=== PATIENT | female | born 1980 | race Two or more races ===

== ENCOUNTER 2019-03-22 19:24 | Emergency (ER) | payer MEDICAID ==
[2019-03-22 19:32] VITALS: BP 120/82
--- NOTE | 2019-03-22 19:43 | ER Document Report ---
ED Skin Rash/Insect Bite/Abscs - General Chief Complaint: Itching Stated Complaint: INSECT BITES Time Seen by Provider: 03/22/19 19:43 Mode of Arrival: Ambulatory Information source: Patient Notes: 38-year-old female presented to ED for insect bites and itching to the arms and legs since Saturday. She states she is been taking Benadryl 50 mg every 4 hours with no relief. She states the symptoms began on Saturday and have not gotten any better. She denies any shortness of breath swelling to the throat swelling to the lips and respirations have been regular nonlabored. She states she is used some Benadryl and calamine lotion with no relief. She is alert oriented respirations regular and unlabored speaking in full sentences. She states she is here on vacation from [place] thinking that they might moved to the area. She states the only medical history she has a fibromyalgia. She states she does not drink smoke or use any recreational drugs. She states she does not work and lives with her family. TRAVEL OUTSIDE OF THE [place] IN LAST 30 DAYS: No - HPI Patient complains to provider of: Insect bite - Arms and legs Onset: Last week Onset/Duration: Persistent Quality of pain: No pain Severity: None Pain Level: Denies Skin Character: Rash Quality of rash: Itchy Similar symptoms previously: No Recently seen / treated by doctor: No - Related Data Allergies/Adverse Reactions: No Known Allergies Allergy (Unverified 03/22/19 19:43) Past Medical History - General Information source: Patient - Social History Smoking Status: Never Smoker Frequency of alcohol use: None Drug Abuse: None Lives with: Family Family History: Reviewed & Not Pertinent Patient has suicidal ideation: No Patient has homicidal ideation: No - Past Medical History Cardiac Medical History: Reports: None Pulmonary Medical History: Reports: None EENT Medical History: Reports: None Neurological Medical History: Reports: None Endocrine Medical History: Reports: None Renal/ Medical History: Reports: None Malignancy Medical History: Reports: None GI Medical History: Reports: None Musculoskeletal Medical History: Reports Hx Fibromyalgia Skin Medical History: Reports None Psychiatric Medical History: Reports: None Traumatic Medical History: Reports: None Infectious Medical History: Reports: None Past Surgical History: Reports: Hx Section - Immunizations Immunizations up to date: Yes Hx Diphtheria, Pertussis, Tetanus Vaccination: Yes Review of Systems - Review of Systems Constitutional: No symptoms reported EENT: No symptoms reported Cardiovascular: No symptoms reported Respiratory: No symptoms reported Gastrointestinal: No symptoms reported Genitourinary: No symptoms reported Female Genitourinary: No symptoms reported Musculoskeletal: No symptoms reported Skin: Rash - Insect bites to arms and legs Hematologic/Lymphatic: No symptoms reported Neurological/Psychological: No symptoms reported -: Yes All other systems reviewed and negative Physical Exam - Vital signs Vitals: Temp Pulse Resp BP Pulse Ox 98.5 F 78 16 120/82 98 03/22/19 19:30 03/22/19 19:30 03/22/19 19:30 03/22/19 19:30 03/22/19 19:30 Interpretation: Normal - General General appearance: Appears well, Alert - HEENT Head: Normocephalic, Atraumatic Eyes: Normal Pupils: PERRL Ears: Normal External canal: Normal Tympanic membrane: Normal Sinus: Normal Nasal: Normal Mouth/Lips: Normal Mucous membranes: Normal Pharynx: Normal Neck: Normal - Respiratory Respiratory status: No respiratory distress Chest status: Nontender Breath sounds: Normal Chest palpation: Normal - Cardiovascular Rhythm: Regular Heart sounds: Normal auscultation Murmur: No - Abdominal Inspection: Normal Distension: No distension Bowel sounds: Normal Tenderness: Nontender Organomegaly: No organomegaly - Back Back: Normal, Nontender - Extremities General upper extremity: Normal inspection, Nontender, Normal color, Normal ROM, Normal temperature General lower extremity: Normal inspection, Nontender, Normal color, Normal ROM, Normal temperature, Normal weight bearing. No: Fahad's sign - Neurological Neuro grossly intact: Yes Cognition: Normal Orientation: AAOx4 [place] Coma Scale Eye Opening: Spontaneous [place] Coma Scale Verbal: Oriented [place] Coma Scale Motor: Obeys Commands [place] Coma Scale Total: 15 Speech: Normal Motor strength normal: LUE, RUE, LLE, RLE Sensory: Normal - Psychological Associated symptoms: Normal affect, Normal mood - Skin Skin Temperature: Warm Skin Moisture: Dry Skin Color: Normal Location of irregularity: Extremities - Insect bites to arms and legs that have been scratched Character of irregularity: Macular Course - Re-evaluation Re-evalutation: 03/22/19 20:35 Patient was treated with a small dose of prednisone and Pepcid in the emergency room she is already been taking Benadryl. She was given instructions on methods to control the symptoms of her insect bites. Patient was also instructed on local primary care doctors if she continues to have symptoms and full when she moves to the area. Verbalized understanding and agreement with treatment plan and patient was discharged home - Vital Signs Vital signs: Temp Pulse Resp BP Pulse Ox 98.5 F 78 16 120/82 98 03/22/19 19:30 03/22/19 19:30 03/22/19 19:30 03/22/19 19:30 03/22/19 19:30 Discharge - Discharge Clinical Impression: insect bites multiple sites no infection Condition: Stable Disposition: HOME, SELF-CARE Instructions: Family Physicians / Practices Additional Instructions: Insect Bites You have been bitten by an insect. These bites can cause two types of swelling: an initial swelling due to insect saliva or injected poison, and a late reaction due to your body's allergic reaction. This initial local reaction may be uncomfortable but is not dangerous. Often there's an itchy "hive" at the bite location. This is treated with antihistamines, cold compresses, and resting the affected body part. The later reaction often develops about the second day. The entire area becomes very swollen, red, itchy, and tender. This is an allergic reaction. Your body is attacking the leftover insect saliva or venom. This type of allergy is unpleasant, but not dangerous. We treat this swelling with cortisone-type medicine. Sometimes we use antibiotics if we're worried about infection. Antihistamines help with the itch. If you develop a fever, chills, a red streak, or swollen glands in the area of the bite, infection may be starting. Return at once. Please do not take hot showers as this will make the itching worse. Please do not get overheated as this will make the itching worse. STEROID MEDICATION: You have been given a medicine of the cortisone/steroid class. This medication is used to control inflammation or allergy. It is usually only given for a short period of time, until the acute process subsides. There are usually no side effects from short-term use of cortisone-like medications. Some persons feel an increased sense of well-being and are not sleepy at bedtime. Long-term use of cortisone medications is best avoided, unless required for a severe condition. If your condition does not remit, or relapses after the course of corticosteroid medication, you should consult your physician. ACID-SUPPRESSING MEDICATION: You have a prescription for medicine which reduces the stomach's secretion of acid. Examples include Zantac, Tagament, and Pepcid. These drugs are often used to allow healing of ulcers or esophagitis. They may be needed to prevent recurrence of ulcers in some patients, or to prevent damage from acid reflux in the esophagus. Take all medication as prescribed, even after the pain is gone. Regular antacids may be added as needed if you have symptoms while taking this medicine. These medications sometimes are prescribed for allergic reactions because they have anti-histaminic effects and relieve the rash and itching of the reaction. There are usually no side effects from this medication. But, in rare cases and particularly in the elderly, serious problems can occur. Contact your doctor if there is fever, rash, hallucinations, confusion, or unusual bruising. Contact your doctor at once if you develop lightheadedness, black or bloody stool, or bloody vomitus. ANTIHISTAMINES: An antihistamine has been given and/or prescribed to control your symptoms. Antihistamines are used for many reasons, including itching, watering eyes, runny nose, allergic swelling, hives, and insect stings. Antihistamines may cause drowsiness, especially with the first dose. Do not operate machinery or drive while under the effects of the medication. Other common side effects include dry mouth and eyes. In older persons, antihistamines can occasionally cause urinary retention, constipation, and trouble focusing the eyes. Do not combine the medication with alcohol, or with any other medication without talking to your doctor. USE OF DIPHENHYDRAMINE: The use of diphenhydramine (Benadryl) has been recommended to control allergic symptoms. The 25 mg strength is available over- the-counter, as well as the elixir. This antihistamine is used for many symptoms. It's useful for itching, watering eyes and nose, allergic swelling, hives, and insect stings. The medication can be repeated four times daily. Age Elixir (12.5 mg/tsp) 25 mg pill 2-3 yr 1/2 tsp 4-8 yr 1 tsp 9-14 yr 2 tsp one tab adult 1-2 tabs Antihistamines may cause drowsiness, especially with the first dose. Do not operate machinery or drive while under the effects of the medication. Do not combine the medication with alcohol, or with any other medication without talking to your doctor. Use calamine lotion, Benadryl lotion, or Caladryl lotion to the site. FOLLOW-UP CARE: If you have been referred to a physician for follow-up care, call the [facility] office for an appointment as you were instructed or within the next two days. If you experience worsening or a significant change in your symptoms, notify the physician immediately or return to the Emergency Department at any time for re-evaluation. Prescriptions: Famotidine [Pepcid 20 mg Tablet] 20 mg PO BID #12 tablet Prednisone [Deltasone 20 mg Tablet] 2 tab PO DAILY 2 Days tablet
[2019-03-22] MEDS ORDERED: PREDNISONE 20 MG TABLET PO ONE (19:57)
[2019-03-22] MEDS ORDERED: FAMOTIDINE 20 MG TABLET PO ONE (19:57)
== END 2019-03-22 20:30 | disposition home or self-care (01) ==
LOC: ER 19:24
DX: S40.862A Insect bite (nonvenomous) of left upper arm, initial encounter (principal); S40.861A Insect bite (nonvenomous) of right upper arm, initial encounter; S80.862A Insect bite (nonvenomous), left lower leg, initial encounter; S80.861A Insect bite (nonvenomous), right lower leg, initial encounter; W57.XXXA Bitten or stung by nonvenomous insect and other nonvenomous arthropods, initial encounter
CPT/HCPCS: 99281; J7512

== ENCOUNTER 2020-02-16 23:55 | Emergency (ER) | payer MEDICAID ==
[2020-02-17] MEDS ORDERED: DEXAMETHASONE SOD PHOS INJ 10 MG/1 ML VIAL IM ONE (03:57)
--- NOTE | 2020-02-17 04:03 | ER Document Report ---
ED Skin Rash/Insect Bite/Abscs - General Chief Complaint: Rash Stated Complaint: RASH Time Seen by Provider: 02/17/20 03:57 Notes: CHIEF COMPLAINT: Poison crystal rash HPI: 39-year-old female presenting for generalized pruritic rash. Pat andres was working outside and believes she may have gotten into poison crystal complains of a very pruritic rash to the face, neck, anterior chest, bilateral arms and bilateral legs. Has taken no medications for her symptoms. Denies other complaints ROS: See HPI - all other systems were reviewed and are otherwise negative Constitutional: no fever Eyes: no drainage, no blurred vision ENT: no runny nose, no sore throat Cardiovascular: no chest pain Resp: no SOB, no cough GI: no vomiting, no diarrhea, no abdominal pain : no dysuria Integumentary: + rash Allergy: no hives Musculoskeletal: no extremity pain or swelling Neurological: no numbness/tingling, no weakness MEDICATIONS: I agree with the patient medications as charted by the RN. ALLERGIES: I agree with the allergies as charted by the RN. PAST MEDICAL HISTORY/PAST SURGICAL HISTORY: Reviewed and agree as charted by RN. SOCIAL HISTORY: Reviewed and agree as charted by RN. FAMILY HISTORY: No significant familial comorbid conditions directly related to patient complaint EXAM: Reviewed vital signs as charted by RN. CONSTITUTIONAL: Alert and oriented and responds appropriately to questions. Well-appearing; well-nourished HEAD: Normocephalic; atraumatic EYES: Conjunctivae clear, sclerae non-icteric ENT: normal nose; no rhinorrhea; moist mucous membranes; pharynx without lesions noted, no uvula edema or deviation, no tonsillar hypertrophy, phonation normal NECK: Supple without meningismus; non-tender; no cervical lymphadenopathy, no masses CARD: Capillary refill less than 3 seconds; symmetric distal pulses RESP: Normal chest excursion without splinting or tachypnea ABD/GI: non-distended. BACK: The back appears normal and is non-tender to palpation, there is no CVA tenderness EXT: Normal ROM in all joints; non-tender to palpation; no cyanosis, no effusions, no edema SKIN: Normal color for age and race; warm; dry; good turgor; raised mildly weeping pruritic rash on the bilateral cheeks, anterior neck, upper central chest, bilateral hands, forearms and upper arms, bilateral legs. No petechia purpura or vesicles. NEURO: Moves all extremities equally; Motor and sensory function intact PSYCH: The patient's mood and manner are appropriate. Grooming and personal hygiene are appropriate. MDM: 39-year-old female with what is likely rhus dermatitis. Will give Decadron in the emergency department keep patient on Vistaril, Decadron at home, PCP follow-up TRAVEL OUTSIDE OF THE [place] IN LAST 30 DAYS: No - Related Data Allergies/Adverse Reactions: No Known Allergies Allergy (Verified 02/17/20 01:33) Home Medications: HTN. FIBRO MYAGIA Past Medical History - Social History Smoking Status: Never Smoker Frequency of alcohol use: None Drug Abuse: None Family History: Reviewed & Not Pertinent Patient has homicidal ideation: No Renal/ Medical History: Denies: Hx Peritoneal Dialysis Musculoskeletal Medical History: Reports Hx Fibromyalgia Past Surgical History: Reports: Hx Section - Immunizations Immunizations up to date: Yes Hx Diphtheria, Pertussis, Tetanus Vaccination: Yes Physical Exam - Vital signs Vitals: Temp Pulse Resp BP Pulse Ox 98.3 F 98 20 134/92 H 98 02/17/20 00:01 02/17/20 00:01 02/17/20 00:01 02/17/20 00:01 02/17/20 00:01 Course - Vital Signs Vital signs: Temp Pulse Resp BP Pulse Ox 98.3 F 74 20 136/95 H 100 02/17/20 03:27 02/17/20 03:27 02/17/20 00:01 02/17/20 03:27 02/17/20 03:27 Discharge - Discharge Clinical Impression: Rhus dermatitis Condition: Stable Disposition: HOME, SELF-CARE Instructions: Poison Crystal ([facility]) Additional Instructions: Take the medications as prescribed, no driving if taking Vistaril as this can make you drowsy. Follow-up with primary care for reevaluation of the symptoms. If you develop swelling around the eyes return for reevaluation you may also use warm oatmeal baths and calamine lotion to help with the itching and the rash Prescriptions: Hydroxyzine Pamoate [Vistaril 25 mg Capsule] 25 mg PO Q6HP PRN #30 capsule PRN Reason: Dexamethasone [Decadron 4 Mg Tablet] 4 mg PO QAM #7 tablet Referrals: KAITY HILARIO MD [ACTIVE STAFF] - Follow up as needed
[2020-02-17 05:29] VITALS: BP 124/72
== END 2020-02-17 05:00 | disposition home or self-care (01) ==
LOC: ER 23:55
DX: L23.7 Allergic contact dermatitis due to plants, except food (principal)
CPT/HCPCS: 99283; 96372; J1100

== ENCOUNTER 2020-02-26 02:54 | Emergency (ER) | payer MEDICAID ==
[2020-02-26] MEDS ORDERED: ONDANSETRON 4 MG TAB.RAPDIS PO ONE (03:41)
[2020-02-26 04:07] LABS: APPEARANCE,URINE SLIGHTLY-CLOUDY; BILIRUBIN,URINE NEGATIVE (NEGATIVE); COLOR,URINE YELLOW; GLUCOSE, URINE NEGATIVE (NEGATIVE); KETONES,URINE NEGATIVE (NEGATIVE); LEUKOCYTE ESTERASE,URINE NEGATIVE (NEGATIVE); NITRITE,URINE NEGATIVE (NEGATIVE); PROTEIN,URINE NEGATIVE (NEGATIVE); URINE SPECIFIC GRAVITY 1.018; UROBILINOGEN,URINE NEGATIVE mg/dL (<2.0)
[2020-02-26 04:26] LABS: ABSOLUTE BASOPHILS # (AUTO) 0.1 10^3/uL (0.0-0.2); ABSOLUTE EOSINOPHILS # (AUTO) 0.3 10^3/uL (0.0-0.6); ABSOLUTE LYMPHOCYTES (AUTO) 3.1 10^3/uL (0.5-4.7); ABSOLUTE MONOCYTES (AUTO) 1.1 10^3/uL (0.1-1.4); ABSOLUTE NEUT (AUTO) 5.5 10^3/uL (1.7-8.2); EOSINOPHILS % (AUTO) 2.5 % (0-6); HEMATOCRIT 41.8 % (36.0-47.0); HEMOGLOBIN 14.5 g/dL (12.0-15.5); LYMPHOCYTES % (AUTO) 31.1 % (13-45); MEAN CORPUSCULAR HEMOGLOBIN 31.4 pg (27.0-33.4); MEAN CORPUSCULAR HGB CONC 34.5 g/dL (32.0-36.0); MEAN CORPUSCULAR VOLUME 91 fl (80-97); MONOCYTES % (AUTO) 10.5 % (3-13); PLATELET COUNT 377 10^3/uL (150-450); RED BLOOD COUNT 4.61 10^6/uL (3.72-5.28); RED CELL DISTRIBUTION WIDTH 13.8 % (11.5-14.0); SEGMENTED NEUTROPHILS % (AUTO) 54.9 % (42-78); TOTAL CELLS COUNTED % (AUTO) 100 %
[2020-02-26 04:38] LABS: ALBUMIN 3.8 g/dL (3.5-5.0); ALKALINE PHOSPHATASE 76 U/L (38-126); ANION GAP 5 (5-19); ASPARTATE AMINO TRANSFERASE 19 U/L (14-36); BILIRUBIN,TOTAL 0.4 mg/dL (0.2-1.3); BLOOD UREA NITROGEN 11 mg/dL (7-20); CALCIUM 9.5 mg/dL (8.4-10.2); CARBON DIOXIDE 26 mmol/L (22-30); CHLORIDE 105 mmol/L (98-107); GLUCOSE 140 mg/dL (75-110); POTASSIUM 4.1 mmol/L (3.6-5.0); TOTAL PROTEIN 6.9 g/dL (6.3-8.2)
[2020-02-26] MEDS ORDERED: NORMAL SALINE 1000 ML 1,000 ML IV ONE (07:02)
[2020-02-26] MEDS ORDERED: ONDANSETRON HCL INJ/PF 4 MG/2 ML SDV IV ONE (07:04)
[2020-02-26] MEDS ORDERED: MORPHINE SULFATE 10 MG/ML INJ IV ONE (07:04)
[2020-02-26 07:45] LABS: URINE AMPHETAMINES SCREEN NEGATIVE; URINE BARBITURATES SCREEN NEGATIVE; URINE BENZODIAZEPINES SCREEN NEGATIVE; URINE COCAINE SCREEN NEGATIVE; URINE MARIJUANA (THC) SCREEN NEGATIVE; URINE METHADONE SCREEN NEGATIVE; URINE PHENCYCLIDINE SCREEN NEGATIVE
--- NOTE | 2020-02-26 10:09 | RADIOLOGY REPORT (SQ) ---
EXAM DESCRIPTION: CT ABD/PELVIS WITH IV ORAL IMAGES COMPLETED DATE/TIME: 02/26/2020 9:54 am REASON FOR STUDY: abd pain/nausea/diarrhea COMPARISON: None. TECHNIQUE: CT scan of the abdomen and pelvis performed using helical scanning technique with dynamic intravenous contrast injection. No oral contrast. Images reviewed with lung, soft tissue, and bone windows. Reconstructed coronal and sagittal MPR images reviewed. Delayed images for evaluation of the urinary system also acquired. All images stored on PACS. All CT scanners at this facility use dose modulation, iterative reconstruction, and/or weight based d osing when appropriate to reduce radiation dose to as low as reasonably achievable (ALARA). [facility]: Dose Right [facility]: CareDose [facility]: Dose Right [facility]: Teradose 4D [facility]: Evento CONTRAST TYPE AND DOSE: 93 mL Omnipaque 350- low osmolar. RENAL FUNCTION: GFR > 60. RADIATION DOSE: CT Rad equipment meets quality standard of care and radiation dose reduction techniq ues were employed. CTDIvol: 10.9 - 15.6 mGy. DLP: 1487 mGy-cm. LIMITATIONS: None. FINDINGS: LOWER CHEST: No acute findings. LIVER: The relative low attenuation of the hepatic parenchyma compared to the splenic parenchyma on t he portal venous phase is suggestive of underlying hepatic steatosis. The portal veins are patent. There is no hepatic mass. SPLEEN: No splenomegaly or splenic mass. PANCREAS: No abnormality of the pancreas. GALLBLADDER: No abnormality that is apparent on CT. ADRENAL GLANDS: No mass or asymmetry. RIGHT KIDNEY AND URETER: No solid masses. No calcifications. No hydronephrosis or hydroureter. LEFT KIDNEY AND URETER: No solid masses. No calcifications. No hydronephrosis or hydroureter. AORTA AND VESSELS: No aneurysm of the abdominal aorta. RETROPERITONEUM: No retroperitoneal adenopathy, hemorrhage or masses. BOWEL AND PERITONEAL CAVITY: Sigmoid diverticulosis without diverticulitis. There is no bowel obstru ction, bowel wall thickening or pericolonic/ perienteric inflammation. There is no mesenteric adenop athy, free intracranial fluid or mesenteric/ omental inflammation. APPENDIX: Normal. PELVIS: No abnormality of the uterus or adnexa that is apparent on CT. The urinary bladder is disten ded and normal in appearance. ABDOMINAL WALL: No mass or hernia. BONES: No acute findings. OTHER: No other finding. IMPRESSION: 1. No acute intracranial abnormality. 2. Hepatic steatosis. 3. Sigmoid diverticulosis without diverticulitis. TECHNICAL DOCUMENTATION: JOB ID: [id number] Quality ID # [id number]: Final reports with documentation of one or more dose reduction techniques (e.g., Au tomated exposure control, adjustment of the mA and/or kV according to patient size, use of iterative reconstruction technique) 2010 [employer]- All Rights Reserved Reading location - IP/workstation name: [email or web address]
[2020-02-26 11:52] VITALS: BP 132/97
--- NOTE | 2020-02-29 10:00 | ER Document Report ---
Entered by AMERICA VYAS SCRIBE 02/26/20 0656 Acting as scribe for:DAREN SINGLETARY MD ED General - General Chief Complaint: Pelvic Pain Stated Complaint: PELVIC PAIN Information source: Patient Notes: This 39-year-old female presents to the emergency department complaining of lower abdominal pain that began yesterday afternoon. Patient describes the pain as 4/5, "like a menstrual cramps" and comes and goes. Patient states that she has never had pain like this before. Patient reports associated nausea and diarrhea. Patient states that she has had two episodes of "dark" diarrhea since the start of her abdominal pain. Patient said that her abdominal pain is worsened with movement. Patient denies vomiting, fever, vaginal discharge, vaginal bleeding, pain with intercourse, seizures, rash, leg swelling, throat pain and chest pain. Patient reports that her last menstrual period was 2 weeks ago. Patient mentions that a couple years ago she had abdominal pain and diarrhea. Patient explains that she had a colonoscopy at that time and was told that the results were normal. TRAVEL OUTSIDE OF THE [place] IN LAST 30 DAYS: No - Related Data Allergies/Adverse Reactions: No Known Allergies Allergy (Verified 02/17/20 01:33) Home Medications: lisinopril, baclofen, gabapentin, triglycerides, anxiety Past Medical History - General Information source: Patient - Social History Smoking Status: Never Smoker Cigarette use (# per day): No Chew tobacco use (# tins/day): No Frequency of alcohol use: None Lives with: Family Family History: Reviewed & Not Pertinent Patient has homicidal ideation: No - Past Medical History Cardiac Medical History: Reports: Hx Hypertension Musculoskeletal Medical History: Reports Hx Fibromyalgia Past Surgical History: Reports: Hx Section - Immunizations Immunizations up to date: Yes Hx Diphtheria, Pertussis, Tetanus Vaccination: Yes Review of Systems - Review of Systems Constitutional: See HPI. denies: Fever EENT: See HPI. denies: Throat pain Cardiovascular: See HPI. denies: Chest pain Respiratory: No symptoms reported Gastrointestinal: See HPI, Abdominal pain, Diarrhea, Nausea. denies: Vomiting, Black stools Genitourinary: See HPI. denies: Dysuria Female Genitourinary: See HPI, Last menstrual period. denies: , Vaginal discharge, Vaginal bleeding, Painful intercourse Musculoskeletal: See HPI. denies: Leg swelling Skin: See HPI. denies: Rash Hematologic/Lymphatic: No symptoms reported Neurological/Psychological: See HPI. denies: Seizure -: Yes All other systems reviewed and negative Physical Exam - Vital signs Vitals: Temp 98.4 F 02/26/20 03:33 - Notes Notes: Physical Exam: General: Alert, appears well. HEENT: Normocephalic. Atraumatic. PERRL. Extraocular movements intact. Oropharynx clear. Neck: Supple. Non-tender. Respiratory: No respiratory distress. Clear and equal breath sounds bilaterally. Cardiovascular: Regular rate and rhythm. Abdominal: LLQ and RLQ tenderness to palpation with guarding. No rebound. No distension. Normal Bowel Sounds. Back: No gross abnormalities. Extremities: Moves all four extremities. Upper extremities: Normal inspection. Normal ROM. Lower extremities: Normal inspection. No edema. Normal ROM. Neurological: Normal cognition. AAOx4. Normal speech. Psychological: Normal affect. Normal Mood. Skin: Warm. Dry. Normal color. Course - Re-evaluation Re-evalutation: 02/26/20 11:28 Patient's abdominal pain is improved though not completely resolved. - Vital Signs Vital signs: Temp Pulse Resp BP Pulse Ox 98.4 F 83 20 140/92 H 96 02/26/20 03:33 02/26/20 05:09 02/26/20 05:09 02/26/20 05:09 02/26/20 05:09 - Laboratory Result Diagrams: 02/26/20 04:05 02/26/20 04:05 Laboratory results interpreted by me: 02/26/20 02/26/20 03:00 04:05 Sodium 136.3 L Glucose 140 H Urine Blood SMALL H 02/26/20 11:29 Laboratories essentially within normal limits small amount of urinary blood noted. - Diagnostic Test Radiology reviewed: Image reviewed, Reports reviewed Radiology results interpreted by me: 02/26/20 11:29 CT scan of abdomen pelvis with with IV and oral contrast shows diverticulosis without diverticulitis and hepatic steatosis. Otherwise no acute process noted. Discharge - Discharge Clinical Impression: Hemorrhoids, Abdominal pain Condition: Stable Disposition: HOME, SELF-CARE Instructions: Abdominal Pain ([facility]), Antinausea Medication ([facility]), Antispasmodics ([facility]) Additional Instructions: Diverticulitis You have been diagnosed as having diverticulitis. This is an inflammation of a small pouch attached to the colon, called a diverticulum. Many of these small pouches can form on the colon as you get older. They are often caused by constipation. When inflamed or infected, symptoms arise -- usually abdominal pain, constipation or diarrhea, fever, and blood in the stool. Severe diverticulitis may require hospitalization. More mild cases are usually treated with antibiotics and clear liquid diet. As you improve, a diet low in residue (one which forms little stool) is prescribed. When you are better, you should eat a high-fiber diet. Stool softeners (like Metamucil) are usually recommended. Call the doctor or go to the hospital if there is increasing pain, vomiting, high fever, large amounts of blood passed, or if bowel movements cease. Your exam today did not confirm diverticulitis. What is noted is that you do have diverticulosis which does predispose you to perhaps developing diverticulitis in the future it is important that you eat a high-fiber diet and that you have regular bowel movements without stress and strain. Hemorrhoids You have hemorrhoids. These are formed by enlargement of veins around the anus. The cause is increased pressure in the veins, from or straining at bowel movements. Hemorrhoids often cause itching and bleeding with bowel movements. When a hemorrhoid becomes clotted, severe pain and swelling result. Soothing creams and suppositories are often prescribed. Warm sitz-baths may also decrease pain, swelling, and itching. Eat a high-fiber diet. Stool softeners such as Metamucil will help. Keep the area very clean. Medicated cleansing pads (such as Tucks) are useful after bowel movements. A hose-mounted shower unit (like a shower massager at low water pressure) can be used to clean around tender hemorrhoid tags. You should call the doctor or return if you develop fever, increasing pain, or an enlarging mass around the anus, or if you simply fail to improve with treatment.Abdominal Pain There are many causes of abdominal pain. Pain can mean a serious problem requiring surgery (such as appendicitis). It can also be an innocent problem that goes away on its own (such as a viral infection). Often, time must pass to determine the cause of pain. The physician does not feel that hospitalization is necessary, at present. Things may change within the next 24 hours. Call the doctor or come back for re- examination if any problems occur, such as: (1) Pain that becomes more severe, steady, or becomes concentrated in one specific area. Also, pain that is more severe with movement or coughing. (2) Vomiting that persists or becomes more frequent. (3) Blood in the vomitus, urine, or bowel movements. Blood in the stool may have a tarry or black appearance. (4) Shaking chills or fever greater than 100 degrees F. (5) The abdomen becomes more distended or swollen. (6) Bowel movements cease. (7) Failure to improve as expected. Prescriptions: Dicyclomine HCl [Bentyl 20 mg Tablet] 20 mg PO QID PRN 5 Days #20 tablet PRN Reason: Abdominal Cramping Ciprofloxacin HCl [Cipro 500 mg Tablet] 500 mg PO BID #20 tablet Polyethylene Glycol 3350 [Miralax] 1 cap PO DAILY #527 powder Ondansetron [Zofran Odt 4 mg Tablet] 1 - 2 tab PO Q4H PRN #15 tab.rapdis PRN Reason: For Nausea/Vomiting I personally performed the services described in the documentation, reviewed and edited the documentation which was dictated to the scribe in my presence, and it accurately records my words and actions.
== END 2020-02-26 11:53 | disposition home or self-care (01) ==
LOC: ER 02:54
DX: R10.2 Pelvic and perineal pain (principal); K64.9 Unspecified hemorrhoids; K57.30 Diverticulosis of large intestine without perforation or abscess without bleeding; K76.0 Fatty (change of) liver, not elsewhere classified; R11.0 Nausea; R31.9 Hematuria, unspecified; R10.813 Right lower quadrant abdominal tenderness; R10.814 Left lower quadrant abdominal tenderness; R19.7 Diarrhea, unspecified; R19.5 Other fecal abnormalities; M79.7 Fibromyalgia; I10 Essential (primary) hypertension; Z79.899 Other long term (current) drug therapy
CPT/HCPCS: 99284; 96361; 96374; 96375; 36415; 83690; 85025; 82270; 81025; 80053; 81001; 80307; 74177; S0119; J2270; J2405; J7030